=== PATIENT | male | born 1985 | race Caucasian/White ===

== ENCOUNTER 2018-05-08 00:48 | Emergency (ER) | payer OTHER ==
[~2018-05-08] VITALS: Ht 180.3 cm; Wt 99.8 kg
[2018-05-08 01:00] VITALS: BP_SYST 128
[2018-05-08 01:20] VITALS: BP_SYST 126
== END 2018-05-08 01:20 ==
LOC: SED 00:48
DX: Z02.83 Encounter for blood-alcohol and blood-drug test (principal)